=== PATIENT | female | born 1960 | race American Indian/Alaskan Native ===

== ENCOUNTER 2024-11-14 21:56 | Emergency (ER) | payer MEDICAID, SELFPAY ==
[2024-11-14 21:57] VITALS: BMI 25.6
--- NOTE | 2024-11-14 23:22 | PC.NURSE ---
called for pt from lobby/outside, no answerx1 @[phone]
--- NOTE | 2024-11-14 23:39 | PC.NURSE ---
N/A FROM LOBBY X2
--- NOTE | 2024-11-14 23:57 | PC.NURSE ---
called for pt from lobby/outside, no answerx3@ [phone]
== END 2024-11-14 23:58 | disposition left against medical advice (07) ==
LOC: SERX 11-15 00:08
PROVIDERS: Emergency Provider Emergency Medicine
DX: Z53.21 Procedure and treatment not carried out due to patient leaving prior to being seen by health care provider (principal)

== ENCOUNTER 2024-11-18 12:07 | Inpatient (IN) | payer MEDICAID, SELFPAY ==
[2024-11-18] VITALS (9 sets, daily range): BP systolic 129–159; BP diastolic 59–82; PULSE 64–80; RESP 15–20; TEMP 36.1–37.6; O2SAT 95–99; BMI 23.6
--- NOTE | 2024-11-18 13:05 | EDNOTE_ITS ---
Altered Mental Status RME/HPI General Chief Complaint: Altered Mental Status Stated Complaint: AMS Time Seen by Provider: 11/18/24 12:49 Arrival date/time: 11/18/24 12:07 RME / HPI RME / HPI narrative: 64 year old female with history of CVA 2020, hypertension, diabetes presents to the ED BIBA from the [facility] clinic for evaluation of altered mental status today. Per medics, staff at the clinic reported while patient was in the clinic she appeared disoriented and altered, prompting calling 911. While in the ED, patient reports feeling like I can't think . She denies feeling anxious or any increased stress. Denies fevers, chills, sweats, chest pain, cough, abdominal pain, n/v/d, or urinary symptoms. History is limited due to mental status: she engages and listens to the question, starts answering the first 2-3 words, then glances briefly off to the distance ends with I can't determine that . pattern with all questions was repetitive with the same ending. Family later arrived and reports in the last week the patient is very forgetful and frequently roaming. States the patient starts tasks that she doesn't finish. Additionally reports patient has complained of patient intermittent dizziness through the week. Related Data Previous Rx's ?Medication ?Instructions ?Recorded metformin 1,000 mg tablet 1,000 mg PO BID #60 tabs Allergies Allergy/AdvReac Type Severity Reaction Status Date / Time No Known Allergies Allergy Verified 11/18/24 13:20 Review of Systems Review of Systems ROS Unobtainable: unobtainable due to mental status Past Medical History Past Medical History NEUROLOGIC: Positive Cerebrovascular Accident CARDIAC: Positive Hypertension Family History FAMILY HISTORY: Negative Family Psychiatric Problems, Family Respiratory Disorders, Family Cardiac Disorders, Family Gastrointestinal Problems, Family Cancer, Family Surgery or Family Anesthesia Reaction Surgical History SURGICAL: Positive Tubal Ligation Social History SMOKING STATUS: Current every day smoker SECOND HAND EXPOSURE: Yes ED Exam Narrative Physical exam: GENERAL APPEARANCE: Awake, alert, unable to complete her answer and ends all answers with a pause and a little contemplation then responds I can't determine that , no obvious distress, nontoxic appearing HEENT: NC, AT. MMM. EOMI, clear conjunctiva, oropharynx clear. NECK: Supple without lymphadenopathy. No stiffness or restricted ROM. HEART: Normal rate and regular rhythm, normal S1/S1, no m/r/g LUNGS: CTAB, moving air well. No crackles or wheezes are heard. ABDOMEN: Soft, nontender, nondistended with good bowel sounds heard. BACK: No midline C/T/L spine pain or deformity, No CVAT, no obvious deformity. EXTREMITIES: Without cyanosis, clubbing or edema. MUSCULOSKELETAL: FROM of all major joints, no chest tenderness NEUROLOGICAL: Awake, alert, unable to complete her answer and ends all answers with a pause and a little contemplation then responds I can't determine that . CN not formally tested but appear grossly intact. Skin: Warm and dry without any rash. Course Quality Measures none Orders Category Date Time Status COVID-19 Screening Questionnaire NOW Care 11/18/24 16:[address] head/brain wo con Stat Exams 11/18/24 13:08 Completed Acetaminophen Stat Lab 11/18/24 13:20 Completed Alcohol, Urine Stat Lab 11/18/24 15:25 Completed CBC Stat Lab 11/18/24 13:20 Completed CMP [Comprehensive Metabolic Panel] Stat Lab 11/18/24 13:20 Completed Drug Screen,Urine Stat Lab 11/18/24 15:25 Completed Lactate (Lactic Acid) Stat Lab 11/18/24 13:20 Completed Procalcitonin Stat Lab 11/18/24 13:20 Completed Urinalysis Stat Lab 11/18/24 15:25 Completed Reevaluation(s) Reevaluation #1: We reviewed all the results, analysis, and treatment plans. Patient is amenable to admission. Time: 15:30 Vital Signs Vital signs: Vital Signs Temperature 97.8 F 11/18/24 12:19 Pulse Rate 74 11/18/24 12:19 Respiratory Rate 19 11/18/24 12:19 Blood Pressure 129/67 11/18/24 12:19 Pulse Oximetry (%) 95 11/18/24 12:19 Oxygen Delivery Method Room Air 11/18/24 12:19 Pulse ox is 95% on room air which is adequate. Altered Mental Status MDM Narrative MDM Narrative:: Ms. Almonte presents clinically well albeit with confusion. Most apparent in her exam is she will not completely answer questions prematurely ending in I can't determine that , repetitive to the exact words. It's in unclear to me if anestic, unwilling, unable, or has word finding difficulty. Her use of the phrase I can't determine that is best describe by the idiom like a broken record . She has no gross motor, sensory or coordination deficits on my neurologic exam. There are subjective reports by friends of occasional dizziness or stumbling . In interaction, psychosis was considered as she would glance off as if responding to an internal stimuli and or even a voice command. Due to limited subjective history and non-focal examination, an expanded work-up was done to include toxicology and CT of the brain for her mental status/cognitive deficits. Due to situational acuity in the ED, I did not review her EMR until I reviewed her head CT images revealing a large left occipital/parietal ischemic lesion, possibly subacute. She also appears to have another lesion in the left frontal horn. Comparison EMR search revealed a inpatient encounter in 2020 for CVA of the brainstem witn CT and MRI for comparison. Case and images (including those from 2020) were reviewed with neurology, Dr. Ibrahim, and agree to a rather large sub-acute infarct of her left occipital/poterior parietal region. Subac ak chin would fit her duration of symptoms, but I am not certain her symptoms match the lesion. I reviewed the Radiology interpretation and agree with location of lesion but feel the occipital is subacute and frontal is old (seen on 2020 MRI flair). After detailed deliberation wtih Dr. Ibrahim we agree best would be to admit for a full stroke, altered mental status workup including MRI. I, Maria Del Carmen Collier, am scribing for and in the presence of Dr. Salgado. Patient data External records reviewed:: [facility] previous records (I reviewed admission from 08/26/2021 thorugh 08/30/2021) and EMS form Clinical information provided by:: patient and EMS Social determinants that could affect healthcare access:: none Patient has the following chronic illnesses:: CVA (2020), hypertension, diabetes How is presenting disease/condition affected by chronic disease/condition?: exacerbated by Evaluation data The following diagnostics were reviewed and interpreted by me:: lab results and radiology exam(s) Lab and/or radiology exams considered but not ordered:: None Interpretation Summary: Examination: CT brain head without contrast. 2-D sagittal coronal reconstructionsDate and time of exam:November 18, 2024 1420 hours INDICATIONS: Onset altered mental status today Technique: Multiple CT axial sections of the brain have been obtained, 5 mm slice thickness. Contrast has not been administered. 2-D sagittal, coronal reconstructions have been obtained Low dose protocols were performed. One or more of the following dose reduction techniques were used; automated exposure control, adjustment of the mA and/or KV according to patient size, use of iterative reconstruction technique. Findings: Acute appearing infarct left posterior temporal left occipital lobe and possibly left frontal temporal lobe Intra-axial or extra-axial hemorrhage density is not seen. No mass effect or midline shift Basal cisterns are not remarkable. Fourth ventricle is midline. Cranial vault intact. Impression: Findings most consistent with large acute infarcts in the left posterior temporal left occipital and left frontal temporal lobes Dictated By: Vincenzo Bernabe MD Signed By: <Electronically signed by Vincenzo Bernabe MD in OV>11/18/24 1537 Medications / Prescriptions Medications or Prescriptions considered but not ordered:: None Medication administrations:: Medication Administration History Acetaminophen (Acetaminophen 325 Mg Tablet) 650 mg PO Q6H PRN PRN Reason: Fever >101.5 or pain 1-3 Stop: 12/18/24 17:10 Dextrose (Dextrose 50%-Water Inj 50 Ml Syringe) 25 ml IV Q15MIN PRN PRN Reason: BG 50-70 responsive npo pt Stop: 12/18/24 17:55 Dextrose (Dextrose 50%-Water Inj 50 Ml Syringe) 50 ml IV Q15MIN PRN PRN Reason: BG <50 OR BG <70 & pt unresponsive Stop: 12/18/24 17:55 Glucagon (Glucagon Inj 1 Mg Vial) 1 mg IM Q15MIN PRN PRN Reason: BG <70, and no IV access Insulin Human Lispro (Insulin Lispro (Admelog) 1 Unit/0.01 Ml Unit) 0 unit SC AC [facility]; Protocol Stop: 12/19/24 07:29 Last Admin: 11/19/24 16:08 Dose: Not Given Documented By: BR Non-Admin Reason: Per Protocol Admin: 11/19/24 11:29 Dose: Not Given Documented By: BR Non-Admin Reason: Per Protocol Admin: 11/19/24 07:42 Dose: Not Given Documented By: BR Non-Admin Reason: Per Protocol Ondansetron HCl (Ondansetron Inj 2 Mg/Ml Inj 2 Ml) 4 mg IV Q6H PRN; Protocol PRN Reason: NAUSEA OR VOMITING Stop: 12/18/24 17:10 Sennosides (Senna Tablet) 1 tab PO QDAY PRN; Protocol PRN Reason: constipation Stop: 12/18/24 17:10 Discontinued Medications Atorvastatin Calcium (Atorvastatin Calcium 20 Mg Tablet) 40 mg PO HS LATRELL Stop: 12/19/24 20:59 Clopidogrel Bisulfate (Clopidogrel Bisulfate 75 Mg Tablet) 75 mg PO QDAY LATRELL Stop: 12/19/24 08:59 Potassium Chloride (Potassium Chloride 20 Meq Tabcr) 40 meq PO X1 ONE Stop: 11/19/24 08:07 Last Admin: 11/19/24 09:10 Dose: 40 meq Documented By: BR Potassium Chloride (Potassium Chloride 20 Meq Tabcr) 40 meq PO X1 ONE Stop: 11/19/24 12:01 Last Admin: 11/19/24 11:23 Dose: 40 meq Documented By: BR See above Consultations Consultation(s) initiated? (list below): Yes Consultation #1 (Physician, Specialty, Details): I spoke with neurologist Dr. Fong. We discussed todays lab and radiology results. Reports patient has had a subacute stroke and recommends admission for stroke work-up. She agrees to consult. Time: 15:20 Consultation #2 (Physician, Specialty, Details): I spoke with hospitalist team regarding admission. Discussed patients PMHx, HPI, ED course, exam findings, labs, and radiology results. The hospitalist agree to accept the patient for admission. Diagnosis Differential diagnosis altered mental status: alcoholic intoxication, altered mental status, dementia, hypoglycemia, hyponatremia, subarachnoid hemorrhage and sepsis Most likely diagnosis given after review of the tests above:: CVA Admission Indicated Admission indicated?: indicated Admission Request Was there a request for admission?: Yes Admission Attestation Admission request attestation: Discussed case with [] from Hospitalist service regarding admission. Discussed patients ED course, exam findings, labs, and radiology results. The Hospitalist [agrees,declines] to accept the patient for admission. Disposition Plan Disposition Plan: Admit Discharge Plan Plan Patient Disposition: Admit Acute Care w/in Hospital Problem List Clinical Impression: CVA (cerebrovascular accident)
--- NOTE | 2024-11-18 13:05 | PC.NURSE ---
PT SENT FROM [facility] DUE TO CONFUSION. PT DROVE SELF TO THE CLINIC WHERE P.A. NOTED CONFUSION AND CALLED AMBULANCE
--- NOTE | 2024-11-18 13:05 | PC.NURSE ---
PT SENT FROM [facility] DUE TO CONFUSION. PT DROVE SELF TO THE CLINIC WHERE P.A. NOTED CONFUSION AND CALLED AMBULANCE
--- NOTE | 2024-11-18 13:08 | XR_ITS ---
Examination: CT brain head without contrast. 2-D sagittal coronal reconstructions Date and time of exam:November 18, 2024 1420 hours INDICATIONS: Onset altered mental status today CTDI: vol (mGy):47.0 DLP: (mGycm):896 Technique: Multiple CT axial sections of the brain have been obtained, 5 mm slice thickness. Contrast has not been administered. 2-D sagittal, coronal reconstructions have been obtained Low dose protocols were performed. One or more of the following dose reduction techniques were used; automated exposure control, adjustment of the mA and/or KV according to patient size, use of iterative reconstruction technique. Findings: Acute appearing infarct left posterior temporal left occipital lobe and possibly left frontal temporal lobe Intra-axial or extra-axial hemorrhage density is not seen. No mass effect or midline shift Basal cisterns are not remarkable. Fourth ventricle is midline. Cranial vault intact. Impression: Findings most consistent with large acute infarcts in the left posterior temporal left occipital and left frontal temporal lobes
--- NOTE | 2024-11-18 13:30 | PC.NURSE ---
PT'S SISTER CAME INTO ROOM AND STATES PT HAS BEEN CONFUSED FOR AT LEAST A WEEK. I TRIED TO GET HER TO COME YESTERDAY BUT SHE REFUSED. SISTER INFORMED OF NEED TO TAKE PT'S CAR KEYS AWAY FROM HER. PT ABLE TO STATE SHE IS IN THE HOSPITAL IN [place] BUT CAN NOT GIVE MONTH OR YEAR WHEN ASKED TO TAKE A GUESS.
[2024-11-18 13:36] LABS: Basophils % (Auto) 0 % (0-2.5); Eosinophils % (Auto) 0 % (0-10); Hematocrit 43.5 % (36.0-46.0); Hemoglobin 15.7 g/dL (12.0-16.0); Immature Granulocytes % (Auto) 0 % (0-0); Immature Granulocytes Auto 0.01 Thou/mm3 (0.00-0.00); Lymphocytes # (Auto) 1.5 Thou/mm3 (1.0-4.8); Lymphocytes % (Auto) 23 % (10-50); Mean Corpuscular HGB Conc 36.1 g/dl (31.0-37.0); Mean Corpuscular Hemoglobin 30.3 pg (25.0-35.0); Mean Corpuscular Volume 84 fL (80-100); Monocytes # (Auto) 0.6 Thou/mm3 (0.0-0.8); Monocytes % (Auto) 10 % (0-12); Neutrophils # (Auto) 4.3 Thou/mm3 (1.8-7.7); Neutrophils % (Auto) 67 % (37-80); Nucleated Red Blood Cell % 0 /100 WBC (0); Platelet Count 250 Thou/mm3 (140-440); RDW Standard Deviation 40.9 fL (36.4-46.3); Red Blood Count 5.18 Miln/mm3 (4.00-5.20); White Blood Count 6.4 Thou/mm3 (3.6-11.0)
[2024-11-18 14:03] LABS: Acetaminophen < 2.0 mcg/mL (10.0-20.0); Alanine Aminotransferase 20 U/L (10-49); Albumin, Serum 4.7 gm/dL (3.4-4.8); Albumin/Globulin Ratio 1.5 (1.2-2.2); Alkaline Phosphatase 106 U/L (46-116); Anion Gap 11 (7-16); Aspartate Amino Transferase 23 U/L (0-34); BUN/Creatinine Ratio 13 Ratio (12-20); Bilirubin,Total 0.5 mg/dL (0.3-1.2); Blood Urea Nitrogen 12 mg/dL (9-23); Calcium 9.2 mg/dL (8.3-10.6); Calcium (Corrected) 9.2 mg/dL (8.5-10.1); Carbon Dioxide 24.9 mMol/L (20.0-31.0); Chloride 100 mMol/L (98-107); Creatinine (Component) 0.9 mg/dL (0.6-1.3); Estimated Creatinine Clearance 51.3 mL/min (>60); Globulin 3.1 gm/dL (2.3-3.5); Glucose 116 mg/dL (74-106); Osmolality,Calculated 272 (275-295); Potassium 3.2 mMol/L (3.4-5.1); Procalcitonin 0.08 ng/ml (0.0-0.49); Sodium 136 mMol/L (136-145); Total Protein 7.8 gm/dL (5.7-8.2); eGFR > 60 See Note
[2024-11-18 15:48] LABS: Collection Type, Urine Clean Catch
[2024-11-18 16:20] LABS: Alcohol, Urine Negative (Negative); Amphetamine/Methamp Scrn,U Negative (Negative); Barbiturate Screen,Urine Negative (Negative); Benzodiazepines Screen,Urine Negative (Negative); Benzoylecgonine Screen, Ur Negative (Negative); Fentanyl Screen,Urine Negative (Negative); Opiate Screen,Urine Negative (Negative); THC Screen,Urine Positive (Negative)
[2024-11-18 16:24] LABS: Bilirubin,Urine Negative (Negative); Blood,Urine Negative (Negative); Clarity,Urine Turbid (Clear/Hazy); Color,Urine Lt-Yellow (Lt Yel-Yel); Glucose, Urine 4+ (Negative); Ketones,Urine 2+ (Negative); Leukocyte Esterase,Urine Negative (Negative); Nitrite,Urine Negative (Negative); Protein,Urine Trace (Neg - Trace); RBC,Urine 3 /hpf (0-3); Squamous Epithelial Cell,Urine 18 /hpf (0-5); Urobilinogen,Urine Negative mg/dL (0.0-1.0); WBC,Urine 8 /hpf (0-5)
--- NOTE | 2024-11-18 17:00 | PC.NURSE ---
pt informed about being admitted. Asked pt if doctor told her she was being admitted and pt states no. Dr. woodward in to tell pt again that she is being admitted for a new stroke. Will continue to reorient pt
--- NOTE | 2024-11-18 17:15 | ECHO_ITS ---
Transthoracic Echo Report Ht (in): 62 Wt (lb): 128 Exam Location: Echo Lab Status: Inpatient Tax Technician: Juana Jacobo Indications: Procedure Performed: BP: 140 / 81 HR: 81 Technical Quality: Very technically difficult study MEASUREMENTS (Male / Female) Normal Values 2D ECHO LV Diastolic Diameter PLAX 4.3 cm 4.2 - 5.9 / 3.9 - 5.3 cm LV Systolic Diameter PLAX 3.4 cm IVS Diastolic Thickness 0.9 cm 0.6 - 1.0 / 0.6 - 0.9 cm LVPW Diastolic Thickness 1.2 cm 0.6 - 1.0 / 0.6 - 0.9 cm LV Relative Wall Thickness 0.5 LVOT Diameter 1.9 cm LA Volume Index 17.4 cm?/m? 16 - 28 cm?/m? DOPPLER AV Peak Velocity 178.0 cm/s AV Peak Gradient 12.7 mmHg AV Mean Gradient 6.0 mmHg AV Velocity Time Integral 33.2 cm LVOT Peak Velocity 115.0 cm/s LVOT Peak Gradient 5.3 mmHg LVOT Velocity Time Integral 21.5 cm LVOT Cardiac Index 3082.9 cm?/min?m? AV Area Cont Eq vti 1.8 cm? AV Area Cont Eq pk 1.8 cm? MV Area PHT 2.8 cm? Mitral E Point Velocity 32.5 cm/s Mitral A Point Velocity 61.6 cm/s Mitral E to A Ratio 0.5 LV E' Lateral Velocity 7.2 cm/s Mitral E to LV E' Lateral Ratio 4.5 LV E' Septal Velocity 3.7 cm/s Mitral E to LV E' Septal Ratio 8.8 FINDINGS Left Ventricle Normal left ventricular size and systolic function with no obvious regional wall motion abnormalities. Mild LVH. Normal left ventricular diastolic filling pattern for age. The ejection fraction is visually estimated at 55 %. Right Ventricle The right ventricle is normal in size and systolic function. Left Atrium The left atrium is normal by two-dimensional, color flow and Doppler imaging with no structural abnormalities, no thrombus formation present. Right Atrium The right atrium is normal by two-dimensional imaging, color flow and Doppler imaging with no structural abnormalities, no thrombus formation present. Atrial Septum The interatrial septum appears normal with no evidence of a shunt. Aorta The aorta is normal by two-dimensional, color flow and Doppler interrogation. Mitral Valve The mitral valve is normal by two-dimensional, color flow and Doppler interrogation. There is no significant mitral valve regurgitation, stenosis or prolapse. Aortic Valve Mild thickening of the aortic valve leaflets. Mild aortic leaflet sclerosis. Tricuspid Valve The tricuspid valve is normal by two-dimensional, color flow and Doppler interrogation. There is a trace tricuspid valve regurgitation. Pulmonic Valve The pulmonic valve is not well visualized. There is no significant pulmonic valve regurgitation. Vessels The pulmonary artery appears normal. The inferior vena cava pulmonary and hepatic veins appear normal. Pericardium The pericardium is normal by two-dimensional imaging. There is no significant pericardial effusion. CONCLUSIONS Indication: stroke Negative Bubble study Normal left ventricular size and function.Mild LVH. Estimated EF 55%. RV is normal in size and systolic function. Mild thickening of the AV. Mild aortic leaflet sclerosis. Trace TR. Yaquelin Steven (Electronically Signed) Final Date: 20 November 2024 00:57
--- NOTE | 2024-11-18 17:23 | ESHP_ITS ---
<Statement entered by Anayeli Mistry MD - 11/26/24 11:49> I reviewed above note and agree with findings and plans. I have also personally examined the patient with medicine team and went over assessment and plan with medical team including international sales representative and resident physician. <Statement entered by Magnus Umana MD - 11/18/24 18:56> Senior Resident Attestation: I supervised/discussed management plan with international sales representative physician Dr. Arteaga, and was involved in the care of this patient. I personally saw and examined the patient and discussed the assessment and plan with the entire medicine team, including my attending. I agree with the assessment and plan as documented. Patient is a 64 years old female with past medical history of hypertension, hyperlipidemia, IDDM, prior CVA presented to the ED due to lethargy, diffuse weakness and trouble remembering things for [address] head showed acute appearing infarct left posterior temporal and left occipital lobe and possibly left frontal temporal lobe. Neurology was consulted and patient was admitted for further work up. Patient's care was discussed with attending physician, Dr. Mistry. Magnus Umana MD PGY-2. Documentation for date of: 11/18/24 HPI History of Present Illness History of present illness: HPI is limited as patient does not remember a number of answers to questions and is relatively poor historian Calista is a 64-year-old female with past medical history of hypertension, hyperlipidemia, insulin-dependent diabetes type 2, possible previous stroke who comes in for an evaluation of lethargy, diffuse weakness and trouble remembering things. Patient reports that she has been feeling like this for the past 5 days. She denies passing out or having any syncope or seizures. She says that she has been feeling weak not herself and having poor oral intake. She denies having any trouble walking however she says that she has been feeling lethargic. She does not know how she got here today. She is unsure what she did this morning and what else she did throughout the day. Upon further review it was revealed that the patient did come to the hospital via ambulance after going to the doctor today. She denies having any symptoms like this however she does state that in 2020 she was hospitalized for possible stroke but she was unsure if she actually had a stroke or if she had a baby stroke. She says that the neurologist, Dr. Fong sounds familiar to her but she says that she has not seen the neurologist recently. She is unsure if she ever followed up with on an outpatient setting. She denies having any history of atrial fibrillation. Denies having any blood thinners. Says she has been taking aspirin for some time now but is unsure why she takes it and recently has stopped taking it as well. When asked further questions in regards to her history, patient says that she does not remember the answers to certain questions and is unable to determine her answer. Denies having any sleep apnea. Says that she takes a number of medicines however she stopped taking them just because she did not want to take them anymore. Confirms that she has had a weight loss as of recent, however is unable to tell me how much she has lost. Denies any recent travel as well or being sick recently. ED course: Patient came with a blood pressure of 130/59, afebrile, respiratory rate of 16, heart rate of 74. She was worked up and was found to have a white count of 6.4, hemoglobin 15.7, potassium 3.2, sodium 136, BUN/creatinine of 12 and 0.9, glucose of 116, T. bili of 0.5, AST ALT 23 and 20 respectively, Pro-Jasen of 0.08, urine showed +4 glucose and +2 ketones and 8 white cells, UDS showed positive THC. Head CT showed large acute infarct in the left posterior temporal left occipital and left frontal temporal lobes. Neurology was consulted who recommended admission for patient with further imaging of MRI and EEG. Medicine was consulted and patient was admitted to the floors Past medical history: As above Surgeries: Hysterectomy, denies having any other abdominal surgeries Allergies: No known allergies Meds: Tylenol 500 Janumet 50-1000, Naproxen 500, Jardiance 25 mg Family history: Patient did say father had a stroke at some point in life, but does not know when. Denies any other stroke history or heart disease Social history: Patient says she was bit on in [place], lived in [place], then moved to [place]. Says she has 1 sibling that lives in [place]. Is currently single, has 2 kids. Siblings throughout [place]. Denies any heavy drinking in the past, denies drug use including IV, says she smokes 5 to 6 cigarettes to this day and she has done so for about 10 years. Does not exercise. Says that she eats bad but cooks majority of her meals but does not know what she cooks at home. Review of Systems Review of Systems Narrative Review of Systems: 12 point system ROS reviewed and otherwise negative unless stated directly in HPI Exam Vital Signs Temp Pulse Resp BP Pulse Ox O2 Del Method 99.4 F 66 20 150/70 H 97 Room Air 11/18/24 16:22 11/18/24 16:22 11/18/24 16:22 11/18/24 16:22 11/18/24 16:22 11/18/24 16:22 Narrative Exam General: AAOx3, NAD, looks older than she is, HEENT: Dry mucous membranes, conjunctiva clear, EOMI, PERRLA, some poor dentition Cardiovascular: EJM murmur heard on CORDELL radiates to carotid, RRR, S1 and S2 Pulmonary: CTAB bilat no cough, no wheezing GI: No tenderness to light or deep palpitation, no guarding, rigidity, rebound tenderness or distension Extremities: No presence of trace or pitting edema in lower extremities bilaterally, dorsalis pedis pulses +2 bilaterally, some leg hair present, poor muscle mass Neuro: AAOx3, no focal motor or sensory deficits in the UE or LE bilat, able to produce speech but has trouble remembering numerous things in the past possible retrograde amnesia on display Psych: Cooperative Results: Labs 11/18/24 13:20 11/18/24 13:20 Labs: Short CBC 11/18/24 Range/Units 13:20 WBC 6.4 (3.6-11.0) Thou/mm3 Hgb 15.7 (12.0-16.0) g/dL Hct 43.5 (36.0-46.0) % Plt Count 250 (140-440) Thou/mm3 BMP 11/18/24 13:20 Sodium 136 Potassium 3.2 L Chloride 100 Carbon Dioxide 24.9 BUN 12 Creatinine 0.9 Glucose 116 H Calcium 9.2 Liver Function 11/18/24 Range/Units 13:20 Total Bilirubin 0.5 (0.3-1.2) mg/dL AST 23 (0-34) U/L ALT 20 (10-49) U/L Alkaline Phosphatase 106 (46-116) U/L Albumin 4.7 (3.4-4.8) gm/dL Urine 11/18/24 Range/Units 15:25 Urine Color Lt-Yellow (Lt Yel-Yel) Urine Clarity Turbid A (Clear/Hazy) Urine pH 6.0 (5.0-7.0) Ur Specific [place] 1.030 (1.001-1.035) Urine Protein Trace (Neg - Trace) Urine Glucose (UA) 4+ A (Negative) Quality Measures Quality Measures none Medications Home Medications and Allergies Allergies Allergy/AdvReac Type Severity Reaction Status Date / Time No Known Allergies Allergy Verified 11/18/24 13:20 Assessment & Plan Plan Assessment Calista is a 64-year-old female with past medical history of hypertension, hyperlipidemia, insulin-dependent diabetes type 2, possible previous stroke who comes is admitted for acute CVA. #Acute CVA #? Previous CVA/infarct Current head CT shows large acute infarct in the left posterior temporal left occipital and left frontal temporal lobes Previous CT in 2020 does not show that on the radiology read, however there was possible concern that in image review that there was a possible infarct then Patient did not apparently follow-up with a neurologist, however has been on aspirin at some point Spoke with neurology, Dr. Fong, recommends admission for patient for further workup including EEG and MRI There is concern for patient possibly having paroxysmal atrial fibrillation as there are multiple areas of infarcts that are large and it is unlikely that patient had triple vessel occlusion all at the same time Previous head and neck CTA in 2020 shows 50 to 60% stenosis of proximal right internal carotid artery We will consider ordering further neck studies based on brain MRI Holding on dual antiplatelet therapy at this time Plan: ? Neurology on consult, appreciate recs ? MR stroke protocol ? Seizure precautions ? Bedrest ? Neuro checks every 4 hours ? Head of bed elevation 30 degrees ? Echo ? EEG ? Follow-up with EKG ? Allow for permissive hypertension for the first 24 hours ? Follow-up with A1c, lipid panel, TSH ? Referral to Speech Therapy ? Referral to Physical Therapy #History of hypertension #History of hyperlipidemia Plan: ? Allowing permissive hypertension ? Follow-up lipid panel #History of insulin-dependent type 2 diabetes A1c in the past has been above 10 in 2020 Plan: ? Sliding scale insulin ? Glucose checks AC ? Hypoglycemia protocol in place ? Follow-up A1c #Health Maintenance Disposition: Telemetry DVT prophylaxis: SCDs GI prophylaxis: None indicated at this time Diet: Cardiac pending nurse swallow eval CODE STATUS: Full Patient seen and care discussed with my senior resident, Dr. Awan , and my attending physician, Dr. Fede Arteaga, PGY-1
--- NOTE | 2024-11-19 | XR_ITS ---
Examinations: MRI Brain without intravenous contrast. MRA brain without intravenous contrast. MRA carotids without intravenous contrast 3-D vascular reconstructions Date and time of exam: November 19, 2024 1131 hours INDICATIONS: Altered mental status disorientation this week Technique: Multiple axial and sagittal images of the brain have been obtained MRA brain carotid images without contrast obtained, including 3-D postprocessing, vascular maximum intensity projection images Findings: [place] is not enlarged. The optic chiasm and infundibular stalk are not remarkable. Prepontine and interpeduncular cisterns are not enlarged. No localized enlargement of the medulla or des. Fourth ventricle and cerebellar tonsils normal in position. Subacute hemorrhage is not seen. Fourth ventricle is midline. Mass in the cerebellopontine angle region is not evident. 7th and 8th nerve complexes exhibits symmetry. Globes are symmetrical with no retro-orbital mass. Increased white matter signal prominent in the left occipital lobe Diffusion-weighted images demonstrate large focus restricted diffusion left occipital lobe, smaller foci restricted diffusion left posterior parietal and higher left parietal lobe Mass-effect upon the ventricular system is not identified. 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
[2024-11-19 00:02] VITALS: BP 133/77; PULSE 76; RESP 17; TEMP 36.8; O2SAT 100
[2024-11-19 04:00] VITALS: BP 146/77; PULSE 84; RESP 15; TEMP 36.2; O2SAT 95
[2024-11-19 06:29] LABS: Basophils % (Auto) 0 % (0-2.5); Eosinophils % (Auto) 1 % (0-10); Hematocrit 38.7 % (36.0-46.0); Hemoglobin 14.2 g/dL (12.0-16.0); Immature Granulocytes % (Auto) 0 % (0-0); Immature Granulocytes Auto 0.01 Thou/mm3 (0.00-0.00); Lymphocytes # (Auto) 2.3 Thou/mm3 (1.0-4.8); Lymphocytes % (Auto) 33 % (10-50); Mean Corpuscular HGB Conc 36.7 g/dl (31.0-37.0); Mean Corpuscular Hemoglobin 31.1 pg (25.0-35.0); Mean Corpuscular Volume 85 fL (80-100); Monocytes # (Auto) 0.7 Thou/mm3 (0.0-0.8); Monocytes % (Auto) 9 % (0-12); Neutrophils # (Auto) 3.9 Thou/mm3 (1.8-7.7); Neutrophils % (Auto) 56 % (37-80); Nucleated Red Blood Cell % 0 /100 WBC (0); Platelet Count 216 Thou/mm3 (140-440); RDW Standard Deviation 40.3 fL (36.4-46.3); Red Blood Count 4.56 Miln/mm3 (4.00-5.20); White Blood Count 6.9 Thou/mm3 (3.6-11.0)
[2024-11-19 06:47] LABS: Glucose Estimated Average 217 mg/dL (80-131); Hemoglobin A1C 9.2 % Hgb (4.8-6.0)
[2024-11-19 07:07] LABS: Alanine Aminotransferase 17 U/L (10-49); Albumin, Serum 4.2 gm/dL (3.4-4.8); Albumin/Globulin Ratio 1.6 (1.2-2.2); Alkaline Phosphatase 91 U/L (46-116); Anion Gap 11 (7-16); Aspartate Amino Transferase 21 U/L (0-34); BUN/Creatinine Ratio 14 Ratio (12-20); Bilirubin,Total 0.5 mg/dL (0.3-1.2); Blood Urea Nitrogen 10 mg/dL (9-23); Calcium 8.9 mg/dL (8.3-10.6); Calcium (Corrected) 8.9 mg/dL (8.5-10.1); Carbon Dioxide 20.8 mMol/L (20.0-31.0); Chloride 105 mMol/L (98-107); Creatinine (Component) 0.7 mg/dL (0.6-1.3); Estimated Creatinine Clearance 65.9 mL/min (>60); Globulin 2.7 gm/dL (2.3-3.5); Glucose 79 mg/dL (74-106); Magnesium 2.1 mg/dL (1.6-2.6); Osmolality,Calculated 271 (275-295); Phosphorous 4.1 mg/dL (2.4-5.1); Potassium 3.1 mMol/L (3.4-5.1); Sodium 137 mMol/L (136-145); Thyroid Stimulating Hormone 1.39 uIU/mL (0.55-4.78); Total Protein 6.9 gm/dL (5.7-8.2); eGFR > 60 See Note
[2024-11-19 07:23] LABS: Cardiac Risk Estimate 3.9 RATIO (3.7-5.6); Cholesterol 142 mg/dL (132-200); HDL Cholesterol 36 mg/dL (40-60); LDL Cholesterol,Calculated 77 mg/dL (0-130); Triglycerides 145 mg/dL (30-150)
[2024-11-19 08:00] VITALS: BP 138/68; PULSE 75; PULSE 86; RESP 17; TEMP 36.8; O2SAT 97
[2024-11-19 08:25] LABS: Partial Thromboplastin Time 30.9 Seconds (22.0-36.0); Prothrombin Time 10.9 Seconds (9.0-12.2)
--- NOTE | 2024-11-19 09:00 | PC.NURSE ---
Notified Dr Kimble that patient (stroke), didn't have aspirin/plavix scheduled currently. Dr will review chart.
[2024-11-19] MEDS: POTASSIUM CHLORIDE 20 mEq TABCR 40 MEQ PO ×2 (09:10→11:23)
--- NOTE | 2024-11-19 10:05 | ESPR_ITS ---
<Statement entered by Anayeli Mistry MD - 11/26/24 11:50> I reviewed above note and agree with findings and plans. I have also personally examined the patient with medicine team and went over assessment and plan with medical team including editing intern and resident physician. <Statement entered by Magnus Umana MD - 11/20/24 10:53> Senior Resident Attestation: I supervised/discussed management plan with editing intern physician Dr. Arteaga, and was involved in the care of this patient. I personally saw and examined the patient and discussed the assessment and plan with the entire medicine team, including my attending. I agree with the assessment and plan as documented. Patient's care was discussed with attending physician, Dr. Mistry. Magnus Umana MD PGY-2. Documentation for date of: 11/19/24 Subjective Subjective Interval history: 11/19/2024: Patient examined at bedside today. No overnight events. Telemetry reviewed patient appears to be normal sinus rhythm rate in 70s. Patient reports she is not having any chest pain or shortness of breath at this time. Denies having any nausea or headache. She still says that she feels that she cannot remember a lot of things at this time. No other complaints at this time Exam Vital Signs Temp Pulse Resp BP Pulse Ox O2 Del Method 98.2 F 75 17 138/68 H 97 Room Air 11/19/24 08:00 11/19/24 08:00 11/19/24 08:00 11/19/24 08:00 11/19/24 08:00 11/19/24 08:00 Narrative Exam General: AAOx3, NAD, looks older than she is, HEENT: Dry mucous membranes, conjunctiva clear, EOMI, PERRLA, some poor dentition Cardiovascular: EJM murmur heard on CORDELL radiates to carotid, RRR, S1 and S2 Pulmonary: CTAB bilat no cough, no wheezing GI: No tenderness to light or deep palpitation, no guarding, rigidity, rebound tenderness or distension Extremities: No presence of trace or pitting edema in lower extremities bilaterally, dorsalis pedis pulses +2 bilaterally, some leg hair present, poor muscle mass Neuro: AAOx3, no focal motor or sensory deficits in the UE or LE bilat, able to produce speech but has trouble remembering numerous things in the past possible retrograde amnesia on display Psych: Cooperative Objective Labs 11/19/24 04:44 11/19/24 04:44 Labs: Laboratory Results - last 24 hr 11/18/24 11/18/24 11/19/24 13:20 15:25 04:44 WBC 6.4 6.9 RBC 5.18 4.56 Hgb 15.7 14.2 Hct 43.5 38.7 MCV 84 85 MCH 30.3 31.1 MCHC 36.1 36.7 RDW Std Deviation 40.9 40.3 Plt Count 250 216 D Neut % (Auto) 67 56 Lymph % (Auto) 23 33 [place] % (Auto) 10 9 Eos % (Auto) 0 1 Baso % (Auto) 0 0 Neut # (Auto) 4.3 3.9 Lymph # (Auto) 1.5 2.3 [place] # (Auto) 0.6 0.7 Eos # (Auto) 0.0 0.0 Baso # (Auto) 0.0 0.0 Immature Gran # (Auto) 0.01 H 0.01 H Absolute Nucleated RBC 0.00 0.00 Immature Gran % 0 0 Nucleated RBC % 0 0 PT 10.9 INR 1.0 APTT 30.9 Sodium 136 137 Potassium 3.2 L 3.1 L Chloride 100 105 Carbon Dioxide 24.9 20.8 Anion Gap 11 11 BUN 12 10 Creatinine 0.9 0.7 Estim Creat Clear Calc 51.3 L 65.9 eGFR > 60 > 60 BUN/Creatinine Ratio 13 14 Glucose [address] Glu mg/dL 217 H Hemoglobin A1c 9.2 H Calculated Osmolality 272 L 271 L Lactic Acid 1.0 Calcium 9.2 8.9 Corrected Calcium 9.2 8.9 Phosphorus 4.1 Magnesium 2.1 Total Bilirubin 0.5 0.5 AST 23 21 ALT 20 17 Alkaline Phosphatase 106 91 Total Protein 7.8 6.9 Albumin 4.7 4.2 D Globulin 3.1 2.7 Albumin/Globulin Ratio 1.5 1.6 Triglycerides 145 Cholesterol 142 LDL Cholesterol, Calc 77 HDL Cholesterol 36 L Cholesterol/HDL Ratio 3.9 Procalcitonin 0.08 TSH 1.39 Ur Collection Type Clean Catch Urine Color Lt-Yellow Urine Clarity Turbid A Urine pH 6.0 Ur Specific [place] 1.030 Urine Protein Trace Urine Glucose (UA) 4+ A Urine Ketones 2+ A Urine Blood Negative Urine Nitrite Negative Urine Bilirubin Negative Urine Urobilinogen (Auto) Negative Ur Leukocyte Esterase Negative Urine RBC 3 Urine WBC 8 H Ur Squamous Epith Cells 18 H Urine Bacteria None Urine Opiates Screen Negative Urine Fentanyl Screen Negative Acetaminophen < 2.0 L Ur Barbiturates Screen Negative U Amphetamin/Meth Scrn Negative U Benzodiazepines Scrn Negative U Cocaine Metab Screen Negative U Marijuana (THC) Screen Positive A Urine Alcohol Negative Quality Measures Quality Measures none Assessment & Plan Assessment Current Active Medications: Generic Name Dose Route Start Last Admin Trade Name Freq PRN Reason Stop Dose Admin Acetaminophen 650 mg 11/18/24 17:11 Acetaminophen 325 Mg Tablet PO 12/18/24 17:10 Q6H PRN Fever >101.5 or pain 1-3 Dextrose 25 ml 11/18/24 17:56 Dextrose 50%-Water Inj 50 Ml Syringe IV 12/18/24 17:55 Q15MIN PRN BG 50-70 responsive npo pt Dextrose 50 ml 11/18/24 17:56 Dextrose 50%-Water Inj 50 Ml Syringe IV 12/18/24 17:55 Q15MIN PRN BG <50 OR BG <70 & pt unresponsive Glucagon 1 mg 11/18/24 17:56 Glucagon Inj 1 Mg Vial IM Q15MIN PRN BG <70, and no IV access Insulin Human Lispro 0 unit 11/19/24 07:30 11/19/24 07:42 Insulin Lispro (Admelog) 1 Unit/0.01 Ml Unit SC 12/19/24 07:29 Not Given AC LATRELL Protocol Ondansetron HCl 4 mg 11/18/24 17:11 Ondansetron Inj 2 Mg/Ml Inj 2 Ml IV 12/18/24 17:10 Q6H PRN NAUSEA OR VOMITING Protocol Potassium Chloride 40 meq 11/19/24 12:00 Potassium Chloride 20 Meq Tabcr PO 11/19/24 12:01 X1 ONE Sennosides 1 tab 11/18/24 17:11 Senna Tablet PO 12/18/24 17:10 QDAY PRN constipation Protocol Plan Assessment Calista is a 64-year-old female with past medical history of hypertension, hyperlipidemia, insulin-dependent diabetes type 2, possible previous stroke who comes is admitted for acute CVA. #Acute CVA #Multiple left-sided infarcts, posterior, temporal, frontal #? Previous CVA/infarct Current head CT shows large acute infarct in the left posterior temporal left occipital and left frontal temporal lobes Previous CT in 2020 does not show that on the radiology read, however there was possible concern that in image review that there was a possible infarct then Patient did not apparently follow-up with a neurologist, however has been on aspirin at some point Spoke with neurology, Dr. Fong, recommends admission for patient for further workup including EEG and MRI There is concern for patient possibly having paroxysmal atrial fibrillation as there are multiple areas of infarcts that are large and it is unlikely that patient had triple vessel occlusion all at the same time Previous head and neck CTA in 2020 shows 50 to 60% stenosis of proximal right internal carotid artery Holding on dual antiplatelet therapy at this time TSH 1.39, total cholesterol 142, LDL 77, A1c 9.2 Concern for embolic stroke due to multiple areas affected Telemetry reviewed no sign of P wave at this time, normal sinus rhythm as well Plan: ? Neurology on consult, appreciate recs ? Follow up MRI ? CT head and neck angio with contrast ? Seizure precautions ? Bedrest ? Neuro checks every 4 hours ? Head of bed elevation 30 degrees ? Follow up Echo ? Follow-up EEG ? Allow for permissive hypertension for the first 24 hours ? Continue with Speech Therapy ? Continue with Physical Therapy ? Cardiology consulted #History of hypertension #History of hyperlipidemia Total cholesterol 142, LDL 77 Plan: ? Allowing permissive hypertension at this time #History of insulin-dependent type 2 diabetes A1c 9.2 Plan: ? Sliding scale insulin ? Glucose checks AC ? Hypoglycemia protocol in place ? Follow-up A1c #Health Maintenance Disposition: Telemetry DVT prophylaxis: SCDs GI prophylaxis: None indicated at this time Diet: Cardiac CODE STATUS: Full Patient seen and care discussed with my senior resident, Dr. Awan , and my attending physician, Dr. Fede Arteaga, PGY-1
--- NOTE | 2024-11-19 10:27 | PCS.ST ---
Speech/Language and Swallowing evaluations completed. See reports for details. No dysphagia. 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
--- NOTE | 2024-11-19 10:44 | CHAP ---
Patient was visited by a Spiritual Care Volunteer on 11/19/2024 between 0900 and 1000 and received encouragement, comfort, and/or prayer.
[2024-11-19 12:00] VITALS: BP 140/81; PULSE 81; RESP 18; TEMP 36.2; O2SAT 96
--- NOTE | 2024-11-19 15:23 | PC.SS ---
Patient is alert/oriented. She verified demographics. Patient was working with PT when initial was completed. She resides alone. Indepenent with ADL's. No DME. Patient was admitted for stroke. PT states patient did very well. Recommended o/p PT services and a FWW. Patient states she drives so she can drive herself to PT. Patient states her daughter, Mindi, is the designated alt decision maker. Patient follows at the [facility]. She will return home and continue to follow up with p.c.p.
--- NOTE | 2024-11-19 15:39 | PC.PT ---
PT eval only. Patient is at her PLOF with her motor skills. Patient is safe to ambulate to the bathroom and in the marie with 1 staff assist for safety 2/2 she is s/p CVA.
[2024-11-19 16:00] VITALS: BP 150/71; PULSE 67; PULSE 69; RESP 20; TEMP 36.8; O2SAT 96
--- NOTE | 2024-11-19 16:30 | XR_ITS ---
Examination: CTA carotids with intravenous contrast CTA brain, head with intravenous contrast. 2-D sagittal, coronal reconstructions. 3-D reconstructions. Exam date and time: Every 2024 at 1629 hours INDICATIONS: Altered mental status beginning this week, brain MRI November 19, 2024 acute infarct left occipital lobe posterior left parietal lobe high left parietal lobe, occlusion left internal carotid artery at its origin CTDI: vol (mGy) 17.5 DLP: (mGycm) 418 Technique: Multiple CTA axial brain, head carotid images post intravenous contrast injection 75 cc, [id number]. 2-D sagittal, coronal reconstructions. 3-D reconstructions, 3-D post processing including vascular maximum intensity projection images. Low dose protocols were performed. One or more of the following dose reduction techniques were used; automated exposure control, adjustment of the mA and/or KV according to patient size, use of iterative reconstruction technique. Findings: Right common carotid carotid carotid bifurcation or internal carotid artery intact Occlusion left internal carotid artery at the bifurcation No filling of the petrous portion of the there is filling of the distal left internal carotid artery including the petrous portion Dominant right vertebral artery with no critical stenoses Basilar artery posterior cerebral branches do fill without occlusions There is filling of the juxtasellar and supraclinoid portions of the internal carotid arteries There are no large vessel occlusions involving middle cerebral or anterior cerebral artery branches IMPRESSION: Occlusion left internal carotid artery at its bifurcation, although there is filling of the distal left internal carotid artery No cerebral large vessel arterial occlusions
[2024-11-19] MEDS: ASPIRIN EC 81 MG TABEC PO (17:43)
[2024-11-19] MEDS: CLOPIDOGREL BISULFATE 75 MG TABLET PO (17:43)
--- NOTE | 2024-11-19 18:55 | ESCONSULT_ITS ---
<Statement entered by Mikel Callahan MD - 11/20/24 04:23> I have personally seen and examined the patient separately on the above date of service and discussed the plan of care with the resident. I reviewed the resident Dr. Galvan consultation progress note and agree with the resident findings and plan in the note above and have also edited the documentation to reflect my findings and plan. 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 In the emergency room patient vitals were stable and labs showed normal CBC CMP except for potassium of 3.2 A1c was 9.2 LFTs were normal cholesterol profile was normal TSH was normal along with procalcitonin. Urine tox was positive for THC. Head CT showed large acute infarct in the left posterior temporal, left occipital as well as left frontotemporal lobes. Patient was admitted for further evaluation of acute stroke. Cardiology was consulted for further evaluation of the stroke and the possibility of atrial fibrillation given that the patient has acute infarct in multiple lobes involving both the anterior and posterior circulation. Assessment and plan: Acute CVA/stroke: Patient appears to had recurrent CVAs as noted in 2020 and acute infarct as well as old infarcts. Patient previously had moderate stenosis of the right internal carotid artery previously noted on the carotid duplex in 2020 but the left carotid artery was intact CT head showed large acute infarct in the left posterior temporal, left occipital as well as the left frontotemporal lobes. MRI and MRA was performed on 1 11/19/2024 showed acute infarcts of the left occipital lobe, posterior left parietal lobe and a left parietal lobe. MRA showed occlusion of the left internal carotid artery at its origin, 70% stenosis of distal M1 segment of the left middle cerebral artery as well as 70% stenosis of the P2 segment of the left posterior septal artery. Also there was significant stenosis of the right internal carotid artery. An echocardiogram was performed 11/18/2024 as part of the evaluation which was negative for any PFO or ASD. Normal LV, RV size and function. Mild LVH EF of 55-60%. Mild aortic valve sclerosis. Trace TR. A CT of the head and neck was also performed which showed occlusion of the left internal carotid artery at its bifurcation with some filling of the distal left internal carotid artery. Cardiology was consulted for further evaluation of the stroke and the possibility of atrial fibrillation given that the patient has acute infarct in multiple lobes involving both the anterior and posterior circulation. Reviewed the EKG and in which showed patient was in normal sinus rhythm without any acute ST-T changes. Reviewed the telemetry closely and there was no evidence of any atrial fibrillation or any other arrhythmias or any heart blocks or pauses. Patient will need eventually long-term Holter monitor to rule out any kind of occult atrial fibrillation which can be and performed as outpatient. For now continue to monitor with telemetry. Patient appears to have at stroke in the setting of occlusion of the left internal carotid artery and moderate to severe stenosis of left middle cerebral artery as well as the left posterior cerebral artery which could explain the findings of the stroke. Recommend bilateral carotid duplex and vascular surgery evaluation for further evaluation of the moderate stenosis of the right internal carotid artery that was seen in the earlier studies. Neurology was consulted and patient is on aspirin Plavix and statin. Recommend strict control of diabetes mellitus as A1c is 9.2 as well as hypertension. LDL goal less than 70 Patient appears to have extensive atherosclerotic vascular disease and is at risk of CAD and eventually will need further ischemic workup which can be done once patient improves. Patient needs to follow-up with cardiology as outpatient for the long-term Holter monitoring as well as the ischemic workup. Management of rest of the medical conditions as per primary team and other consultants. Thank you for the consult and allowing me to participate in the care of the patient. Cardiology will continue to follow. Mikel Callahan M.D. Interventional Cardiology HPI Data of Consult Requesting Physician: Anayeli Mistry MD Admitting Provider: Anayeli Mistry MD Attending Provider: Anayeli Mistry MD Primary Care Provider: Arthur Daniel MD Consult Narrative History of present illness: Ms. Almonte is a 64-year-old female with past medical history of hypertension, hyperlipidemia, insulin-dependent diabetes type 2, hx of previous stroke (unknown to the patient ) initially presented to the ED due to lethargy, diffuse weakness and difficulty remembering events for the last 5 days. Cardiology is consulted for evaluation of possible cardiac embolic event in the setting of ischemic stroke . Majority of history is taken by chart reviewing as patient is unable to express much details on her current medical history due to expressive aphasia in the setting of large acute infarct in the left posterior temporal left occipital and left frontal temporal lobes. Per chart review revealing initially patient denied any trouble walking however she was feeling very lethargic and weak. Patient is unable to recall and express how she was able to make it to the hospital. And denies any previous history of stroke or similar symptoms or episodes. Patient does not follow Dr. Fong outpatient. And denied taking any medications that she can recall. ED course: Patient came with a blood pressure of 130/59, afebrile, respiratory rate of 16, heart rate of 74. She was worked up and was found to have a white count of 6.4, hemoglobin 15.7, potassium 3.2, sodium 136, BUN/creatinine of 12 and 0.9, glucose of 116, T. bili of 0.5, AST ALT 23 and 20 respectively, Pro-Jasen of 0.08, urine showed +4 glucose and +2 ketones and 8 white cells, UDS showed positive THC. Head CT showed large acute infarct in the left posterior temporal left occipital and left frontal temporal lobes. Neurology was consulted who recommended admission for patient with further imaging of MRI and EEG. Medicine was consulted and patient was admitted to the floors Per chart reviewing the following is obtained from previous hospital admission in 2020 ischemic CVA medullary level on MRI. CT head without acute intracranial processes. CT angio Head & Neck-?50-60% stenosis proximal right internal carotid artery, No cerebral arterial occlusions, thrombus, dissection or cerebral aneurysm. MRI-?Increased white matter signal evident, old infarct left basal ganglia & Acute infarct right brain stem, medullary level. Echo- Normal LV structure and systolic function, No wall motion abnormalities, EF of 58-60%, Mildly sclerotic AV without significant stenosis, No significant regurgitation through cardic valves, No cardiac thrombi or shunts detected. Onset of symptoms greater than 24 hours, therefore TPA not indicated. Consulted Neurologist Dr. Fong and patient started on atorvastatin and clopidogrel daily. Patient started on hypertension medications including: Amlodipine, lisinopril, carvedilol. Patient newly diagnosed type II DM, blood sugar on admission 347, A1c 10.8%, patient discharged on Metformin and insulin. Past medical history: As above Surgeries: Hysterectomy, denies having any other abdominal surgeries Allergies: No known allergies Meds: Tylenol 500 Janumet 50-1000, Naproxen 500, Jardiance 25 mg Family history: Patient did say father had a stroke at some point in life, but does not know when. Denies any other stroke history or heart disease Social history: Patient says she was bit on in [place], lived in [place], then moved to [place]. Says she has 1 sibling that lives in [place]. Is currently single, has 2 kids. Siblings throughout [place]. Denies any heavy drinking in the past, denies drug use including IV, says she smokes 5 to 6 cigarettes to this day and she has done so for about 10 years. Does not exercise. Says that she eats bad but cooks majority of her meals but does not know what she cooks at home. cc:: cc: Anayeli Mistry MD Review of Systems Review of Systems Systems Reviewed: All systems reviewed, normal except as documented Exam Vital Signs Temp Pulse Resp BP Pulse Ox O2 Del Method 98.3 F 69 20 150/71 H 96 Room Air 11/19/24 16:00 11/19/24 16:00 11/19/24 16:00 11/19/24 16:00 11/19/24 16:00 11/19/24 16:00 Narrative Exam GENERAL: A&Ox3 . Awake, Not in acute distress, unable to complete sentences and thoughts NEURO: no focal neurological deficits HEENT: Atraumatic, Normocephalic. mucous membranes moist. Eyes open, symmetrical, & clear HEART: Normal Heart Sounds LUNGS: Clear to auscultation with no wheezing or crackles. ABDOMEN: soft, non-distended, non-tender, bowel sounds heard, no guarding or rebound tenderness SKIN: No Rash or ecchymoses EXTREMITIES: No edema, tenderness, able to move all 4 extremities, pedal pulses palpated Results Labs 11/19/24 04:44 11/19/24 04:44 Labs: Short CBC 11/19/24 Range/Units 04:44 WBC 6.9 (3.6-11.0) Thou/mm3 Hgb 14.2 (12.0-16.0) g/dL Hct 38.7 (36.0-46.0) % Plt Count 216 D (140-440) Thou/mm3 BMP 11/19/24 04:44 Sodium 137 Potassium 3.1 L Chloride 105 Carbon Dioxide 20.8 BUN 10 Creatinine 0.7 Glucose 79 Calcium 8.9 Liver Function 11/19/24 Range/Units 04:44 Total Bilirubin 0.5 (0.3-1.2) mg/dL AST 21 (0-34) U/L ALT 17 (10-49) U/L Alkaline Phosphatase 91 (46-116) U/L Albumin 4.2 D (3.4-4.8) gm/dL Quality Measures Quality Measures none Medications Home Medications and Allergies Allergies Allergy/AdvReac Type Severity Reaction Status Date / Time No Known Allergies Allergy Verified 11/18/24 13:20 Visit Medications Acetaminophen (Acetaminophen 325 Mg Tablet) 650 mg PO Q6H PRN PRN Reason: Fever >101.5 or pain 1-3 Stop: 12/18/24 17:10 Aspirin (Aspirin Ec 81 Mg Tabec) 81 mg PO QDAY [facility] Stop: 12/19/24 17:29 Last Admin: 11/19/24 17:43 Dose: 81 mg Clopidogrel Bisulfate (Clopidogrel Bisulfate 75 Mg Tablet) 75 mg PO QDAY [facility] Stop: 12/19/24 17:29 Last Admin: 11/19/24 17:43 Dose: 75 mg Dextrose (Dextrose 50%-Water Inj 50 Ml Syringe) 25 ml IV Q15MIN PRN PRN Reason: BG 50-70 responsive npo pt Stop: 12/18/24 17:55 Dextrose (Dextrose 50%-Water Inj 50 Ml Syringe) 50 ml IV Q15MIN PRN PRN Reason: BG <50 OR BG <70 & pt unresponsive Stop: 12/18/24 17:55 Glucagon (Glucagon Inj 1 Mg Vial) 1 mg IM Q15MIN PRN PRN Reason: BG <70, and no IV access Insulin Human Lispro (Insulin Lispro (Admelog) 1 Unit/0.01 Ml Unit) 0 unit [facility]; Protocol Stop: 12/19/24 07:29 Last Admin: 11/19/24 16:08 Dose: Not Given Ondansetron HCl (Ondansetron Inj 2 Mg/Ml Inj 2 Ml) 4 mg IV Q6H PRN; Protocol PRN Reason: NAUSEA OR VOMITING Stop: 12/18/24 17:10 Sennosides (Senna Tablet) 1 tab PO QDAY PRN; Protocol PRN Reason: constipation Stop: 12/18/24 17:10 Discontinued Medications Atorvastatin Calcium (Atorvastatin Calcium 20 Mg Tablet) 40 mg PO HS LATRELL Stop: 12/19/24 20:59 Clopidogrel Bisulfate (Clopidogrel Bisulfate 75 Mg Tablet) 75 mg PO QDAY [facility] Stop: 12/19/24 08:59 Potassium Chloride (Potassium Chloride 20 Meq Tabcr) 40 meq PO X1 ONE Stop: 11/19/24 08:07 Last Admin: 11/19/24 09:10 Dose: 40 meq Potassium Chloride (Potassium Chloride 20 Meq Tabcr) 40 meq PO X1 ONE Stop: 11/19/24 12:01 Last Admin: 11/19/24 11:23 Dose: 40 meq Assessment & Plan Plan Ms. Almonte is a 64-year-old female with past medical history of hypertension, hyperlipidemia, insulin-dependent diabetes type 2, hx of previous stroke (unknown to the patient ) initially presented to the ED due to lethargy, diffuse weakness and difficulty remembering events for the last 5 days. Cardiology is consulted for evaluation of possible cardiac embolic event in the setting of ischemic stroke. #Acute CVA in the setting of #expressive aphasia #Hx of CVA Current head CT shows large acute infarct in the left posterior temporal left occipital and left frontal temporal lobes There is concern for patient possibly having paroxysmal atrial fibrillation as there are multiple areas of infarcts that are large and it is unlikely that patient had triple vessel occlusion all at the same time head and neck CTA in 2020 shows 50 to 60% stenosis of proximal right internal carotid artery We will consider ordering further neck studies based on brain MRI Holding on dual antiplatelet therapy at this time Plan: ? Neurology on consult, appreciate recs ? MR stroke protocol ? Seizure precautions ? Neuro checks every 4 hours ? Head of bed elevation 30 degrees ? Echo stat ordered ? EEG ? Follow-up with EKG ? Allow for permissive hypertension for the first 24 hours ? Follow-up with A1c, lipid panel, TSH ? Referral to Speech Therapy ? Referral to Physical Therapy #History of hypertension #History of hyperlipidemia Plan: ? Allowing permissive hypertension ? Follow-up lipid panel #History of insulin-dependent type 2 diabetes continue management as per primary hospitalist team Assessment and plan discussed with my attending physician Dr. London Simental (PGY-1)- Internal medicine resident
[2024-11-19 20:00] VITALS: BP 159/82; PULSE 67; RESP 20; TEMP 36.1; O2SAT 96
--- NOTE | 2024-11-19 23:49 | PD.NEUROPROG ---
Documentation for date of: 11/19/24 Subjective Subjective Interval history: Patient was seen in telemetry today. No new symptoms reported. She has trouble remembering things. Exam - Neurology Vital Signs Temp Pulse Resp BP Pulse Ox O2 Del Method 97.0 F 67 20 159/82 H 96 Room Air 11/19/24 20:00 11/19/24 20:00 11/19/24 20:00 11/19/24 20:00 11/19/24 20:00 11/19/24 20:00 Narrative Exam GENERAL APPEARANCE: Well hydrated, well-nourished in no acute distress. HEENT: Normocephalic, atraumatic, extraocular movements intact. Pupils: Equal reacting to light NECK: Supple, no JVD or bruits. CARDIOVASULAR: Heart: S1, S2 heard, regular without S3-S4 or murmur no rubs or gallops. LUNGS/CHEST: Clear to auscultation bilaterally. No rails, rhonchi, or wheezing. Normal inspection. ABDOMEN: Soft, nontender, with normal bowel sounds. No pulsatile masses. No rebound, rigidity, or guarding. Normal inspection and palpation. EXTREMITIES: Normal inspection and palpation. No edema, clubbing or cyanosis. SKIN: Warm and dry without rashes. Normal inspection. MUSCULOSKELETAL: No cervical, thoracic, lumbar or midline bony tenderness. Normal inspection. NEURO: Alert, awake and oriented x3. Cranial nerves: II through XII grossly intact. Speech and language: Normal with no dysarthria or dysphasia. Motor system: Tone and bulk: Normal: Strength: 5 out of 5 in all 4 extremities; No pronator drift noted. Deep tendon reflexes: 2+ bilaterally symmetrical. Plantar reflex: Downgoing bilaterally. Sensory system: Intact to all modalities of sensation bilaterally. Coordination: Intact to [id number] and [id number] test bilaterally. No ataxia, no dysmetria, or dysdiadochokinesia noted. No intention tremors noted. Gait: Not tested. No signs of meningeal irritation noted. PSYCHIATRIC: Normal mood and affect. Objective Labs 11/19/24 04:44 11/19/24 04:44 Labs: Laboratory Results - last 24 hr 11/19/24 04:44 WBC 6.9 RBC 4.56 Hgb 14.2 Hct 38.7 MCV 85 MCH 31.1 MCHC 36.7 RDW Std Deviation 40.3 Plt Count 216 D Neut % (Auto) 56 Lymph % (Auto) 33 [place] % (Auto) 9 Eos % (Auto) 1 Baso % (Auto) 0 Neut # (Auto) 3.9 Lymph # (Auto) 2.3 [place] # (Auto) 0.7 Eos # (Auto) 0.0 Baso # (Auto) 0.0 Immature Gran # (Auto) 0.01 H Absolute Nucleated RBC 0.00 Immature Gran % 0 Nucleated RBC % 0 PT 10.9 INR 1.0 APTT 30.9 Sodium 137 Potassium 3.1 L Chloride 105 Carbon Dioxide 20.8 Anion Gap 11 BUN 10 Creatinine 0.7 Estim Creat Clear Calc 65.9 eGFR > 60 BUN/Creatinine Ratio [address] Glu mg/dL 217 H Hemoglobin A1c 9.2 H Calculated Osmolality 271 L Calcium 8.9 Corrected Calcium 8.9 Phosphorus 4.1 Magnesium 2.1 Total Bilirubin 0.5 AST 21 ALT 17 Alkaline Phosphatase 91 Total Protein 6.9 Albumin 4.2 D Globulin 2.7 Albumin/Globulin Ratio 1.6 Triglycerides 145 Cholesterol 142 LDL Cholesterol, Calc 77 HDL Cholesterol 36 L Cholesterol/HDL Ratio 3.9 TSH 1.39 Assessment & Plan Assessment and plan (1) Acute ischemic stroke: Status: Acute Assessment and plan: MRI brain: Acute infarcts left occipital lobe, posterior left parietal lobe, higher left parietal lobe; Occlusion left internal carotid artery at its origin; Significant stenosis juxtasellar right internal carotid artery; 70% stenosis distal M1 segment left middle cerebral artery 70% stenosis P2 segment left posterior cerebral artery Continue with aspirin, Plavix and statin and keep the diabetes and hypertension under control. (2) Hypertension: Status: Acute Assessment and plan: Aggressive blood pressure management starting tomorrow (3) Hyperlipidemia: Status: Acute Assessment and plan: Continue with statin (HDL is low LDL: 77) (4) Type 2 diabetes mellitus: Status: Acute Assessment and plan: Check fingersticks glucose and follow sliding scale insulin per protocol. Goal is to keep the A1c under 7 Additional Assessment & Plan Additional Plan: MRI brain showed acute medullary infarct. Echo: Normal LV structure and systolic function.? No wall motion abnormalities. ? EF of 58-60%.? ?Mildly sclerotic AV without significant stenonis. ?No significant regurgiation through cardic valves. ?No cardiac thrombi or shunts detected Carotid Doppler showed no stenosis on either side. Continue with the Plavix and statin, keep the vascular risk factors under control. Walk with the walker for better safety. Patient needs diabetes education. Stable for discharge.
[2024-11-20] VITALS (7 sets, daily range): BP systolic 127–157; BP diastolic 70–88; PULSE 60–106; RESP 12–20; TEMP 35.9–36.6; O2SAT 95–99; BMI 22.8; BMI 23.7
[2024-11-20 06:09] LABS: Basophils % (Auto) 0 % (0-2.5); Eosinophils # (Auto) 0.1 Thou/mm3 (0.0-0.5); Eosinophils % (Auto) 1 % (0-10); Hematocrit 38.7 % (36.0-46.0); Hemoglobin 13.7 g/dL (12.0-16.0); Immature Granulocytes % (Auto) 0 % (0-0); Immature Granulocytes Auto 0.02 Thou/mm3 (0.00-0.00); Lymphocytes # (Auto) 2.4 Thou/mm3 (1.0-4.8); Lymphocytes % (Auto) 36 % (10-50); Mean Corpuscular HGB Conc 35.4 g/dl (31.0-37.0); Mean Corpuscular Hemoglobin 29.7 pg (25.0-35.0); Mean Corpuscular Volume 84 fL (80-100); Monocytes # (Auto) 0.6 Thou/mm3 (0.0-0.8); Monocytes % (Auto) 9 % (0-12); Neutrophils # (Auto) 3.5 Thou/mm3 (1.8-7.7); Neutrophils % (Auto) 54 % (37-80); Nucleated Red Blood Cell % 0 /100 WBC (0); Platelet Count 214 Thou/mm3 (140-440); RDW Standard Deviation 39.7 fL (36.4-46.3); Red Blood Count 4.61 Miln/mm3 (4.00-5.20); White Blood Count 6.6 Thou/mm3 (3.6-11.0)
[2024-11-20 06:30] LABS: Prothrombin Time 10.9 Seconds (9.0-12.2)
[2024-11-20 07:06] LABS: Alanine Aminotransferase 16 U/L (10-49); Albumin, Serum 4.1 gm/dL (3.4-4.8); Albumin/Globulin Ratio 1.5 (1.2-2.2); Alkaline Phosphatase 91 U/L (46-116); Anion Gap 8 (7-16); Aspartate Amino Transferase 17 U/L (0-34); BUN/Creatinine Ratio 17 Ratio (12-20); Bilirubin,Total 0.4 mg/dL (0.3-1.2); Blood Urea Nitrogen 12 mg/dL (9-23); Calcium 8.7 mg/dL (8.3-10.6); Calcium (Corrected) 8.7 mg/dL (8.5-10.1); Carbon Dioxide 22.1 mMol/L (20.0-31.0); Chloride 107 mMol/L (98-107); Creatinine (Component) 0.7 mg/dL (0.6-1.3); Estimated Creatinine Clearance 65.9 mL/min (>60); Globulin 2.7 gm/dL (2.3-3.5); Glucose 121 mg/dL (74-106); Magnesium 2.2 mg/dL (1.6-2.6); Osmolality,Calculated 274 (275-295); Phosphorous 2.7 mg/dL (2.4-5.1); Potassium 3.9 mMol/L (3.4-5.1); Sodium 137 mMol/L (136-145); Total Protein 6.8 gm/dL (5.7-8.2); eGFR > 60 See Note
--- NOTE | 2024-11-20 08:05 | XR_ITS ---
Examination: Carotid arterial duplex scan, ultrasound. Date and time of exam: November 20, 2024 1131 hours INDICATIONS: Stroke alert category 3 2024, brain MRI 0.4 2024 acute infarct left occipital lobe posterior left parietal lobe, occlusion left internal carotid artery at its origin Technique: Multiple sonographic images have been obtained of the carotid arteries and vertebral arteries, B-mode/grayscale imaging and Doppler spectral analysis and color flow Peak systolic and diastolic velocities have been recorded. Systolic diastolic ratios have been calculated. Findings: Right peak systolic velocities: Distal internal carotid artery peak systolic velocity is 2.4 M/sec Proximal internal carotid artery peak systolic velocity is 2.4 M/sec Carotid bifurcation peak systolic velocity is 1.0 M/sec External carotid artery peak systolic velocity is 1.0 M/sec Vertebral artery flow is antegrade. Left peak systolic velocities: Distal internal carotid artery no flow Proximal internal carotid artery peak systolic velocity is 0.4 M/sec Carotid bifurcation peak systolic velocity is 0.5 M/sec External carotid artery peak systolic velocity is 1.0 M/sec Vertebral artery flow is antegrade Doppler waveform analysis demonstrates spectral broadening on the right Impression: Right internal carotid artery demonstrates 70% plus stenosis. Left internal carotid artery demonstrates no flow distal left internal carotid artery
[2024-11-20] MEDS: ASPIRIN EC 81 MG TABEC PO (08:06)
[2024-11-20] MEDS: CLOPIDOGREL BISULFATE 75 MG TABLET PO (08:07)
[2024-11-20] MEDS: POTASSIUM CHLORIDE 20 mEq TABCR PO (08:27)
--- NOTE | 2024-11-20 09:19 | PC.SS ---
Patient needs a FWW for home. The diagnosis creates mobility limitation that significantly impairs ability to participate in the patients activities of daily living either in their entirety, or in a reasonable time frame. Also the patient is able to safely use the walker and the patient?s mobility is sufficiently resolved with the use of the walker and cane has been ruled out.
--- NOTE | 2024-11-20 10:13 | PD.RESDS ---
Planned Discharge Date 11/20/24 DS: Providers Provider Date of admission: 11/18/24 17:11 Primary care physician: Artuhr Daniel MD Admitting Provider: Anayeli Mistry MD Attending Provider on Admission: Lei Hinton MD Consults: 11/18/24 18:00 Referral Physical Therapy Routine Comment: Physician Instructions: Referral Speech Therapy Routine Comment: 11/19/24 08:16 Consult to Neurology / Tele-Neurology Stat Comment: CVA Consulting Provider: Ricardo Fong 11/19/24 10:21 Consult to Cardiology Routine Comment: Stroke, concern for embolic stroke no hx of afib Consulting Provider: Mikel Callahan Attending Provider on DC: Lei Hinton MD Discharging Provider: Lei Hinton MD DS: Diagnosis Problem List Completed Was Problem List Reviewed/Reconciled?: Yes Hospital Course Hospital Course Hospital course: Ms. Almonte is a 64-year-old female with past medical history of hypertension, hyperlipidemia, insulin-dependent diabetes type 2(~9.2 A1c), possible hx of previous stroke (unknown to the patient ) who was admitted on 11/18/[address] [facility] for acute CVA. Pt came to the ED for evaluation of generalized weakness and trouble remembering past events, that had been going on for one week. She also did not remember that she went to the doctor the day of admission and was brought by ambulance. She denied having a hx of stroke and afib at the time. She came to the ED with a blood pressure of 130/59, afebrile, respiratory rate of 16, heart rate of 74. She was worked up and was found to have a white count of 6.4, hemoglobin 15.7, potassium 3.2, sodium 136, BUN/creatinine of 12 and 0.9, glucose of 116, T. bili of 0.5, AST ALT 23 and 20 respectively, Pro-Jasen of 0.08, urine showed +4 glucose and +2 ketones and 8 white cells, UDS showed positive THC. Head CT showed large acute infarct in the left posterior temporal left occipital and left frontal temporal lobes. Neurology was consulted who recommended admission for patient with further imaging of MRI and EEG. Medicine was consulted and patient was admitted to the floors. While on the floors, pt had MRI stroke and CT angio head and neck. MRI showed acute infarct left occipital, posterior left parietal lobe, left parietal lobe, occlusion of left internal carotid artery, significant stenosis in the right internal carotid artery, 70% stenosis in both. The distal M1 segment left MCA and P2 segment left posterior cerebral artery. CT angio head and neck showed occlusion L internal carotid artery at its bifurcation, but no cerebral large vessel occlusions. Carotid Duplex US was done and showed right internal carotid artery showing 70+ stenosis, left internal carotid artery demonstrates no flow distal left internal carotid artery. With this patient will need to see vascular surgery outpatient. Neurology, Dr. Brush seen pt and recommended for pt to continue ASA, Plavix and statin and follow-up upon D/C. Pt will also follow up with me in the outpatient clinic at the [facility]. Patient will also see punchboard filling machine operator, Dr. Callahan, as patient will need Holter monitor to rule out paroxysmal atrial fibrillation which may have caused possible embolic stroke for patient. If you don't have a PCP, please reach out to: [facility], Dr. Arteaga [address] [place] [address] , [address] [place] [address] [phone] Take medicines as prescribed Take your aspirin and Plavix as prescribed If you do not follow up at the [facility], follow up with your PCP within one week Return to ER if your symptoms return or worsen Follow up with neurologist, Dr. Fong within one week, Follow up with Dr. Callahan, Photovoltaic Installer within one week, Purchase blood pressure machine and measure BP once daily #Acute CVA #Multiple left-sided infarcts, posterior, temporal, frontal #? Previous CVA/infarct #History of hypertension #History of hyperlipidemia #History of insulin-dependent type 2 diabetes Patient seen and care discussed with my senior resident, Dr. Umana , and my attending physician, Dr. Jamaal Arteaga, PGY-1 Time Spent with Patient Time attestation: Total time spent providing and/or coordinating discharge services: Time spent: Greater than 30 minutes Home Health Home Health Referral Orders: 11/20/24 08:25 Home Health Referral Routine Reason For Exam: Home PT Home-Bound The patient must either because of illness or injury, need the aid of supportive devices such as crutches, canes, wheelchairs, and walkers; the use of special transportation; or the assistance of another person in order to leave their place of residence; OR have a condition such that leaving his or her home is medically contraindicated. In addition, the patient also meets the following criteria: patient is normally unable to leave the home and leaving home requires considerable taxing effort. Addendum to Home Health Certification Practitioner's Certification: I certify that the patient has been under my care in the hospital and the care of attending physician (see below). We had a [id number] encounter on (see date below). My clinical findings indicate that the patient is home bound per the above criteria and the Home Health Services noted in these orders are medically necessary. The primary reason for the tbvl-[id number] encounter is related to the fact that the patient requires home health services. Date Certifying Qtvr-[id number]-[id number] Physician Encounter: 11/18/24 Physician's Name who will Assume Oversight for Services: Arthur Daniel Physician's Phone No.who will Assume Oversight for Service: EFFICIENCY ENGINEER - Community Resources: Yes PT to Evaluate: Yes PT to evaluate and provide a treatmnet plan to increase patient's mobility and strength. Wound Care: No IV Therapy: No RN Safety Evaluation: Yes RN to evaluate and create a plan of care that will produce positive outcomes. Palliative Treatment: No Palliative treatment and evaluate the need for hospice. Home Health Aide - Personal Care: Yes Home Health Aide to assist with any ADL's. Exam Vital Signs Temp Pulse Resp BP Pulse Ox O2 Del Method 97.2 F 71 16 147/75 H 98 Room Air 11/20/24 08:00 11/20/24 08:00 11/20/24 08:00 11/20/24 08:00 11/20/24 08:00 11/20/24 08:00 Narrative Exam General: AAOx3, NAD, looks older than she is, HEENT: Dry mucous membranes, conjunctiva clear, EOMI, PERRLA, some poor dentition Cardiovascular: EJM murmur heard on CORDELL radiates to carotid, RRR, S1 and S2 Pulmonary: CTAB bilat no cough, no wheezing GI: No tenderness to light or deep palpitation, no guarding, rigidity, rebound tenderness or distension Extremities: No presence of trace or pitting edema in lower extremities bilaterally, dorsalis pedis pulses +2 bilaterally, some leg hair present, poor muscle mass Neuro: AAOx3, no focal motor or sensory deficits in the UE or LE bilat, able to produce speech but has trouble remembering numerous things in the past possible retrograde amnesia on display Psych: Cooperative Discharge Plan Plan Patient Disposition: HOME (Self Care) Patient condition on transfer: Stable Prescriptions/Referrals Prescriptions/Med Rec: New nicotine 21 mg/24 hr patch 24 hour 21 mg topical QDAY Qty: 14 0RF Rx Instructions: Apply one patch topically to body for two weeks and leave on for 24 hours, replace once a day nicotine 14 mg/24 hr patch 24 hour 14 mg topical QDAY Qty: 14 0RF Rx Instructions: Apply one patch topically to body for two weeks and leave on for 24 hours, replace once a day nicotine 7 mg/24 hr patch 24 hour 7 mg topical QDAY Qty: 14 0RF Rx Instructions: Apply one patch topically to body for two weeks and leave on for 24 hours, replace once a day (DME) FreeStyle Debbie 3 Plus Sensor Device See Rx Instructions .Route Qty: 1 0RF Rx Instructions: As directed (DME) FreeStyle Debbie 3 [place] Misc See Rx Instructions .Route Qty: 1 0RF Rx Instructions: As directed aspirin 81 mg tablet,delayed release (DR/EC) 81 mg PO QDAY 30 Days Qty: 30 0RF clopidogrel [Plavix] 75 mg tablet 75 mg PO QDAY 30 Days Qty: 30 0RF atorvastatin [Lipitor] 40 mg tablet 40 mg PO QPM Qty: 30 0RF metformin 1,000 mg tablet 1,000 mg PO BID Qty: 60 0RF lisinopril 10 mg tablet 10 mg PO QDAY Qty: 30 0RF Continued metformin 1,000 mg tablet 1,000 mg PO BID Qty: 60 0RF Referrals: Arthur Daniel MD [Primary Care Provider] - Patient/Caregiver Discharge Instructions Other Discharge Activity Instructions:: If you don't have a PCP, please reach out to: [facility], Dr. [address] , [address] [place] [address] [phone] Take medicines as prescribed Take your aspirin and Plavix as prescribed If you do not follow up at the [facility], follow up with your PCP within one week Return to ER if your symptoms return or worsen Follow up with neurologist, Dr. Fong within one week, Follow up with Dr. Callahan, Photovoltaic Installer within one week, Purchase blood pressure machine and measure BP once daily Print Language: Bahraini Stand Alone Forms: Annamarie Award Info., Patient Portal Info Letter Discharge Order Discharge Orders: Discharge (Routine); Ordered 11/20/24 Ordered By: Cole Arteaga Quality Discharge Quality Measures VTE prophylaxis (SCDs) Attestestation MD Attestation I reviewed labs, imaging, EKG, home medications and prior available records. Face to face evaluation was performed by me. I have personally examined the patient and discussed assessment and plan with the IM team. I reviewed the resident note and agree with the plan with exceptions as below. Acute CVA: MRI showed left occipital and parietal CVA. Discussed with neurology: Continue aspirin, Plavix, and atorvastatin. Ordered echocardiogram that showed preserved EF of 55% and negative bubble study. Consulted cardiology. Recommended outpatient long-term Holter monitor Carotid artery stenosis: Seen on ultrasound. 70+ stenosis, left internal carotid artery demonstrates no flow distal left internal carotid artery. Follow-up with vascular surgery as outpatient. Continue aspirin, Plavix, and atorvastatin Time spent is 40 minutes. More than 50% of the time was spent on patient education and coordination of care.
--- NOTE | 2024-11-20 10:26 | PD.RESPRO ---
Documentation for date of: 11/20/24 Subjective Subjective Interval history: 11/20: Pt is seen at bedside and 2 two daughters are bedside. Pt is able to completed sentences and express her thoughts into complete sentences. Pt admits to smoking 1 pack cigs daily for the past 40 years and was counseled against smoking and its harm to pts arteries. Pt expressed she desires to quit smoking. will notify the primary hospitalist team to add nicotine patch taper. Exam Vital Signs Temp Pulse Resp BP Pulse Ox O2 Del Method 97.2 F 71 16 147/75 H 98 Room Air 11/20/24 08:00 11/20/24 08:00 11/20/24 08:00 11/20/24 08:00 11/20/24 08:00 11/20/24 08:00 Objective Labs 11/20/24 04:20 11/20/24 04:20 Labs: Laboratory Results - last 24 hr 11/20/24 04:20 WBC 6.6 RBC 4.61 Hgb 13.7 Hct 38.7 MCV 84 MCH 29.7 MCHC 35.4 RDW Std Deviation 39.7 Plt Count 214 Neut % (Auto) 54 Lymph % (Auto) 36 [place] % (Auto) 9 Eos % (Auto) 1 Baso % (Auto) 0 Neut # (Auto) 3.5 Lymph # (Auto) 2.4 [place] # (Auto) 0.6 Eos # (Auto) 0.1 Baso # (Auto) 0.0 Immature Gran # (Auto) 0.02 H Absolute Nucleated RBC 0.00 Immature Gran % 0 Nucleated RBC % 0 PT 10.9 INR 1.0 Sodium 137 Potassium 3.9 D Chloride 107 Carbon Dioxide 22.1 Anion Gap 8 BUN 12 Creatinine 0.7 Estim Creat Clear Calc 65.9 eGFR > 60 BUN/Creatinine Ratio 17 Glucose 121 H D Calculated Osmolality 274 L Calcium 8.7 Corrected Calcium 8.7 Phosphorus 2.7 Magnesium 2.2 Total Bilirubin 0.4 AST 17 ALT 16 Alkaline Phosphatase 91 Total Protein 6.8 Albumin 4.1 Globulin 2.7 Albumin/Globulin Ratio 1.5 Quality Measures Quality Measures none Assessment & Plan Assessment Current Active Medications: Generic Name Dose Route Start Last Admin Trade Name Freq PRN Reason Stop Dose Admin Acetaminophen 650 mg 11/18/24 17:11 Acetaminophen 325 Mg Tablet PO 12/18/24 17:10 Q6H PRN Fever >101.5 or pain 1-3 Aspirin 81 mg 11/19/24 17:30 11/20/24 08:06 Aspirin Ec 81 Mg Tabec PO 12/19/24 17:29 81 mg QDAY LATRELL Administration Atorvastatin Calcium 40 mg 11/20/24 21:00 Atorvastatin Calcium 20 Mg Tablet PO 12/20/24 20:59 HS LATRELL Clopidogrel Bisulfate 75 mg 11/19/24 17:30 11/20/24 08:07 Clopidogrel Bisulfate 75 Mg Tablet PO 12/19/24 17:29 75 mg QDAY LATRELL Administration Dextrose 25 ml 11/18/24 17:56 Dextrose 50%-Water Inj 50 Ml Syringe IV 12/18/24 17:55 Q15MIN PRN BG 50-70 responsive npo pt Dextrose 50 ml 11/18/24 17:56 Dextrose 50%-Water Inj 50 Ml Syringe IV 12/18/24 17:55 Q15MIN PRN BG <50 OR BG <70 & pt unresponsive Glucagon 1 mg 11/18/24 17:56 Glucagon Inj 1 Mg Vial IM Q15MIN PRN BG <70, and no IV access Insulin Human Lispro 0 unit 11/19/24 07:30 11/20/24 07:46 Insulin Lispro (Admelog) 1 Unit/0.01 Ml Unit SC 12/19/24 07:29 Not Given AC LATRELL Protocol Ondansetron HCl 4 mg 11/18/24 17:11 Ondansetron Inj 2 Mg/Ml Inj 2 Ml IV 12/18/24 17:10 Q6H PRN NAUSEA OR VOMITING Protocol Sennosides 1 tab 11/18/24 17:11 Senna Tablet PO 12/18/24 17:10 QDAY PRN constipation Protocol Plan Ms. Almonte is a 64-year-old female with past medical history of hypertension, hyperlipidemia, insulin-dependent diabetes type 2, hx of previous stroke (unknown to the patient ) initially presented to the ED due to lethargy, diffuse weakness and difficulty remembering events for the last 5 days. Cardiology is consulted for evaluation of possible cardiac embolic event in the setting of ischemic stroke. # Acute CVA in the setting of # History of prior CVA-2 previous episodes # Expressive aphasia?resolved -Patient has a known history of a CVA in 2020 in the setting of head and neck CTA which showed 50 to 60% stenosis of the proximal right internal carotid artery. Patient also states prior to that she had a stroke which did not have any residual deficits but cannot recall what year it was. -Current hospital admission CT of the head shows large acute infarct in the left posterior temporal left occipital and left frontal temporal lobes. Patient initially had expressive aphasia and was unable to complete thoughts and express any words however today patient has significant improvement and is able to express her symptoms and give medical history with complete sentences. -Per primary hospital team patient is referred to speech therapy, physical therapy with the stroke protocol as well as in-house neurologist Dr. Fong is following. -As per neuro recs pt is started on aspirin, clopidogrel and statin Cardiology is consulted for evaluation of cardioembolic event in the setting of Aifb -EKG findings are normal sinus rhythm without acute ST or T waves changes. -telemetry is review without evidence of pt being in a fib or arrhythmias - Echo findings inlcude normal LV, RV size and function. Mild LVH EF of 55-60%. Mild aortic valve sclerosis. Trace TR. -Patient likely had acute CVA in the setting of occluded left internal carotid artery and moderate to severe stenosis of left middle cerebral artery and left posterior cerebral artery. -MRA showed 70% stenosis of left middle cerebral artery and 70% stenosis of left posterior septal artery and significant stenosis of right internal carotid artery. -Patient is recommended to be evaluated by vascular surgeon #nicotine dependence -Patient endorses to smoking 1 pack of cigarettes daily starting at the age of 20s for 40 years. Patient continues to be a active smoker however she expressed she is not going to smoke anymore and as of this hospital admission she has quit smoking. Patient is advised nicotine patch taper 21 mg x2 weeks, 14mg x2 weeks and 7mg x2 weeks #History of hypertension #History of hyperlipidemia -Although on initial presentations patient's blood pressure was 129/67 in the setting of acute CVA , permissive hypertension for the first 24 hours was indicated. Patient's current blood pressure is 145/78 and patient is given lisinopril 10 Mg x 1. Patient is to continue home atorvastatin 40 Mg daily #History of insulin-dependent type 2 diabetes -Per primary hospital team management patient is started on insulin sliding scale with hypoglycemic protocol in place Assessment and plan discussed with my attending physician Dr. London Simental (PGY-1)- Internal medicine resident Attending Provider Attestation/Addendum I have personally seen and examined the patient separately on the above date of service and discussed the plan of care with the resident. I reviewed the resident Dr. Galvan consultation progress note and agree with the resident findings and plan in the note above and have also edited the documentation to reflect my findings and plan. 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 In the emergency room patient vitals were stable and labs showed normal CBC CMP except for potassium of 3.2 A1c was 9.2 LFTs were normal cholesterol profile was normal TSH was normal along with procalcitonin. Urine tox was positive for THC. Head CT showed large acute infarct in the left posterior temporal, left occipital as well as left frontotemporal lobes. Patient was admitted for further evaluation of acute stroke. Cardiology was consulted for further evaluation of the stroke and the possibility of atrial fibrillation given that the patient has acute infarct in multiple lobes involving both the anterior and posterior circulation. Assessment and plan: Acute CVA/stroke: Patient appears to had recurrent CVAs as noted in 2020 and acute infarct as well as old infarcts. Patient previously had moderate stenosis of the right internal carotid artery previously noted on the carotid duplex in 2020 but the left carotid artery was intact CT head showed large acute infarct in the left posterior temporal, left occipital as well as the left frontotemporal lobes. MRI and MRA was performed on 1 11/19/2024 showed acute infarcts of the left occipital lobe, posterior left parietal lobe and a left parietal lobe. MRA showed occlusion of the left internal carotid artery at its origin, 70% stenosis of distal M1 segment of the left middle cerebral artery as well as 70% stenosis of the P2 segment of the left posterior septal artery. Also there was significant stenosis of the right internal carotid artery. An echocardiogram was performed 11/18/2024 as part of the evaluation which was negative for any PFO or ASD. Normal LV, RV size and function. Mild LVH EF of 55-60%. Mild aortic valve sclerosis. Trace TR. A CT of the head and neck was also performed which showed occlusion of the left internal carotid artery at its bifurcation with some filling of the distal left internal carotid artery. Cardiology was consulted for further evaluation of the stroke and the possibility of atrial fibrillation given that the patient has acute infarct in multiple lobes involving both the anterior and posterior circulation. Reviewed the EKG and in which showed patient was in normal sinus rhythm without any acute ST-T changes. Reviewed the telemetry closely and there was no evidence of any atrial fibrillation or any other arrhythmias or any heart blocks or pauses. Patient will need eventually long-term Holter monitor to rule out any kind of occult atrial fibrillation which can be and performed as outpatient. For now continue to monitor with telemetry. Patient appears to have at stroke in the setting of occlusion of the left internal carotid artery and moderate to severe stenosis of left middle cerebral artery as well as the left posterior cerebral artery which could explain the findings of the stroke. Recommend bilateral carotid duplex and vascular surgery evaluation for further evaluation of the moderate stenosis of the right internal carotid artery that was seen in the earlier studies. Neurology was consulted and patient is on aspirin Plavix and statin. Recommend strict control of diabetes mellitus as A1c is 9.2 as well as hypertension. LDL goal less than 70 Patient appears to have extensive atherosclerotic vascular disease and is at risk of CAD and eventually will need further ischemic workup which can be done once patient improves. Patient needs to follow-up with cardiology as outpatient for the long-term Holter monitoring as well as the ischemic workup. Concern extensively on quitting smoking. Advised nicotine patches taper for quitting smoking. 21 mg patch for 2 weeks followed by 40 mg patch for 2 weeks and 7 mg patch for 2 weeks. Management of rest of the medical conditions as per primary team and other consultants. Thank you for the consult and allowing me to participate in the care of the patient. Cardiology will continue to follow. Mikel Callahan M.D. Interventional Cardiology
--- NOTE | 2024-11-20 10:38 | PCS.ST ---
Pt needs continued outpatient speech services for potential return to independent living in 2-3 months.
--- NOTE | 2024-11-20 10:51 | CHAP ---
Patient was visited by a Spiritual Care Volunteer on 11/20/2019 between 0900 and 0923 and received comfort, encouragement and/or prayer.
--- NOTE | 2024-11-20 14:13 | PC.SS ---
Follow up note: Patient will d/c back to [facility] once she has a b.m.
--- NOTE | 2024-11-20 14:14 | PC.SS ---
Follow up note: Patient to d/c home today. PT referred to o/p PT and needs a FWW. SS will have this delivered to the home. Referral will be sent to [facility] o/p PT
[2024-11-20] MEDS: Lisinopril 2.5 MG TABLET 10 MG PO (18:57)
--- NOTE | 2024-11-20 19:50 | PC.NURSE ---
Daughter and family at bedside to go over discharge instructions, education on stroke s/s and packet given. Patient verbalized feels safe to go home. Daughter confirmed patient will be staying with family. Warned about blood thinner and falling, daughter verbalized will help monitor walking. BP high, Dr. Arteaga notified, 10 mg of lisinopril given and Dr. Arteaga ok to discharge BP 153/76
--- NOTE | 2024-11-20 23:02 | PD.NEUROPROG ---
Documentation for date of: 11/20/24 Subjective Subjective Interval history: Patient was seen in telemetry today. No new symptoms reported. She has trouble remembering things. Exam - Neurology Vital Signs Temp Pulse Resp BP Pulse Ox O2 Del Method 96.6 F L 77 18 153/76 H 97 Room Air 11/20/24 19:40 11/20/24 19:40 11/20/24 19:40 11/20/24 19:40 11/20/24 19:40 11/20/24 19:40 Narrative Exam GENERAL APPEARANCE: Well hydrated, well-nourished in no acute distress. HEENT: Normocephalic, atraumatic, extraocular movements intact. Pupils: Equal reacting to light NECK: Supple, no JVD or bruits. CARDIOVASULAR: Heart: S1, S2 heard, regular without S3-S4 or murmur no rubs or gallops. LUNGS/CHEST: Clear to auscultation bilaterally. No rails, rhonchi, or wheezing. Normal inspection. ABDOMEN: Soft, nontender, with normal bowel sounds. No pulsatile masses. No rebound, rigidity, or guarding. Normal inspection and palpation. EXTREMITIES: Normal inspection and palpation. No edema, clubbing or cyanosis. SKIN: Warm and dry without rashes. Normal inspection. MUSCULOSKELETAL: No cervical, thoracic, lumbar or midline bony tenderness. Normal inspection. NEURO: Alert, awake and oriented x3. Cranial nerves: II through XII grossly intact. Speech and language: Normal with no dysarthria or dysphasia. Motor system: Tone and bulk: Normal: Strength: 5 out of 5 in all 4 extremities; No pronator drift noted. Deep tendon reflexes: 2+ bilaterally symmetrical. Plantar reflex: Downgoing bilaterally. Sensory system: Intact to all modalities of sensation bilaterally. Coordination: Intact to [id number] and arfm-xpee-[id number] test bilaterally. No ataxia, no dysmetria, or dysdiadochokinesia noted. No intention tremors noted. Gait: Not tested. No signs of meningeal irritation noted. PSYCHIATRIC: Normal mood and affect. Objective Labs 11/20/24 04:20 11/20/24 04:20 Labs: Laboratory Results - last 24 hr 11/20/24 04:20 WBC 6.6 RBC 4.61 Hgb 13.7 Hct 38.7 MCV 84 MCH 29.7 MCHC 35.4 RDW Std Deviation 39.7 Plt Count 214 Neut % (Auto) 54 Lymph % (Auto) 36 [place] % (Auto) 9 Eos % (Auto) 1 Baso % (Auto) 0 Neut # (Auto) 3.5 Lymph # (Auto) 2.4 [place] # (Auto) 0.6 Eos # (Auto) 0.1 Baso # (Auto) 0.0 Immature Gran # (Auto) 0.02 H Absolute Nucleated RBC 0.00 Immature Gran % 0 Nucleated RBC % 0 PT 10.9 INR 1.0 Sodium 137 Potassium 3.9 D Chloride 107 Carbon Dioxide 22.1 Anion Gap 8 BUN 12 Creatinine 0.7 Estim Creat Clear Calc 65.9 eGFR > 60 BUN/Creatinine Ratio 17 Glucose 121 H D Calculated Osmolality 274 L Calcium 8.7 Corrected Calcium 8.7 Phosphorus 2.7 Magnesium 2.2 Total Bilirubin 0.4 AST 17 ALT 16 Alkaline Phosphatase 91 Total Protein 6.8 Albumin 4.1 Globulin 2.7 Albumin/Globulin Ratio 1.5 Assessment & Plan Assessment and plan (1) Acute ischemic stroke: Status: Acute Assessment and plan: MRI brain: Acute infarcts left occipital lobe, posterior left parietal lobe, higher left parietal lobe; 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 Needs outpatient fu with vascular surgery for intervention even though it is asymptomatic side. Echo: normal Continue with aspirin, Plavix and statin and keep the diabetes and hypertension under control. (2) Hypertension: Status: Acute Assessment and plan: Aggressive blood pressure management starting tomorrow (3) Hyperlipidemia: Status: Acute Assessment and plan: Continue with statin (HDL is low LDL: 77) (4) Type 2 diabetes mellitus: Status: Acute Assessment and plan: Check fingersticks glucose and follow sliding scale insulin per protocol. Goal is to keep the A1c under 7 Additional Assessment & Plan Additional Plan: MRI brain showed acute medullary infarct. Echo: Normal LV structure and systolic function.? No wall motion abnormalities. ? EF of 58-60%.? ?Mildly sclerotic AV without significant stenonis. ?No significant regurgiation through cardic valves. ?No cardiac thrombi or shunts detected Carotid Doppler showed no stenosis on either side. Continue with the Plavix and statin, keep the vascular risk factors under control. Walk with the walker for better safety. Patient needs diabetes education. Stable for discharge.
--- NOTE | 2024-11-23 10:04 | PC.CC ---
HH referral sent on [facility]. Awaiting responses. Pending Start of care date.
--- NOTE | 2024-11-24 10:05 | PC.CC ---
[facility] accepted the pt. Booked [facility]. Pending insurance auth and start of care date.
--- NOTE | 2024-11-28 08:08 | PC.CC ---
Start of care date with [facility] is 11/27/24.
== END 2024-11-20 20:07 | disposition home or self-care (01) | DRG 45 ==
LOC: SERX 17:23 → SERHOLD 17:36 → S2NX 20:05
PROVIDERS: Admitting Provider Internal Medicine; Emergency Provider Emergency Medicine; PCP Family Medicine; Visit Provider Student in an Organized Health Care Education/Training Program
DX: I63.512 Cerebral infarction due to unspecified occlusion or stenosis of left middle cerebral artery (principal); I63.232 Cerebral infarction due to unspecified occlusion or stenosis of left carotid arteries; I63.532 Cerebral infarction due to unspecified occlusion or stenosis of left posterior cerebral artery; I10 Essential (primary) hypertension; E11.9 Type 2 diabetes mellitus without complications; E78.5 Hyperlipidemia, unspecified; R53.1 Weakness; R29.701 NIHSS score 1; F17.210 Nicotine dependence, cigarettes, uncomplicated; Z86.73 Personal history of transient ischemic attack (TIA), and cerebral infarction without residual deficits; Z79.82 Long term (current) use of aspirin; Z79.02 Long term (current) use of antithrombotics/antiplatelets; Z79.84 Long term (current) use of oral hypoglycemic drugs; Z79.899 Other long term (current) drug therapy
CPT/HCPCS: 36415; 70450; 70496; 70498; 70544; 80053; 80061; 80307; 80320; 80329; 81001; 83036; 83605; 83735; 84100; 84145; 84443; 85025; 85610; 85730; 92507; 92523; 92610; 93005; 93306; 93880; 95816; 97162; 99285; A4649; Q9967; A9270; G0480